=== PATIENT | male | born 1995 | race Hispanic/Latino ===

== ENCOUNTER 2020-02-02 21:35 | Emergency (ER) | payer SELFPAY ==
[2020-02-02] MEDS ORDERED: Acetaminophen 500 MG TAB ONE (22:07)
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
[2020-02-03] MEDS ORDERED: Adacel (T-DAP) 0.5 ML SYRINGE ONE (00:14)
[2020-02-03] MEDS ORDERED: Morphine 4 MG/ML VIAL ONE (00:14)
[2020-02-03] MEDS ORDERED: Ondansetron PF 4 MG/2 ML Vial ONE (00:17)
[2020-02-03] MEDS ORDERED: Lidocaine 1% w/Epinephrine 1:100K 20 ML VIAL ONE (00:38)
[2020-02-03 00:51] LABS: Hemoglobin 15.1 g/dL (14.0-18.0); Mean Corpuscular HGB CONC 31.8 g/dL (32.0-36.0); Mean Corpuscular Hemoglobin 27.6 pg (27.0-31.0); Mean Corpuscular Volume 86.9 fL (78.0-98.0); Platelet Count 295 thou/uL (130-400); RBC Distribution Width 12.6 % (11.5-14.5); Red Blood Cell (RBC) Count 5.47 mill/uL (4.70-6.10); White Blood Cell (WBC) Count 23.5 thou/uL (4.8-10.8)
[2020-02-03 01:09] LABS: Anion Gap 14 mmol/L (10-20); BUN (Urea Nitrogen) 11 mg/dL (8.9-20.6); Calc. Creatinine Clearance 0 mL/min (70-130); Calcium 10.4 mg/dL (7.8-10.44); Carbon Dioxide 24 mmol/L (22-29); Chloride 104 mmol/L (98-107); Estimated GFR-MDRD Greater than 90; Glucose 156 mg/dL (70-105); Potassium 3.7 mmol/L (3.5-5.1); Sodium 138 mmol/L (136-145)
[2020-02-03 01:10] LABS: Band 23 % (5-11); Lymphocytes 6 % (21-51); MDiff Complete? YES; Neutrophil 71 % (42-75); Platelet Morphology Comment Appears Adequate; RBC Morphology Normal
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
[2020-02-03] MEDS ORDERED: Iopamidol-370 76% 500 ML 1 ML ONE (12:19)
== END 2020-02-03 03:55 | disposition home or self-care (01) ==
LOC: ERS 21:35
DX: S06.0X9A Concussion with loss of consciousness of unspecified duration, initial encounter (principal); S52.221A Displaced transverse fracture of shaft of right ulna, initial encounter for closed fracture; S01.81XA Laceration without foreign body of other part of head, initial encounter; Z23 Encounter for immunization; V86.59XA Driver of other special all-terrain or other off-road motor vehicle injured in nontraffic accident, initial encounter
CPT/HCPCS: 70450; 71045; 72125; 74177; 80048; 85025; 90715; J2270; J2405; Q9967